=== PATIENT | male | born 1955 | race Caucasian/White ===

== ENCOUNTER 2020-07-04 20:50 | Emergency (ER) | payer SELFPAY ==
[~2020-07-04] VITALS: Ht 167.6 cm; Wt 68.0 kg
[2020-07-04 21:09] VITALS: BP_SYST 129
--- NOTE | 2020-07-04 21:15 | NUR ---
PT BROUGHT IN BY DAUGHTER, PT STATES THAT APPROX 8PM TONIGHT HE MIXED VINEAGAR AND CLOROX TO CLEAN A FLOOR. PT STATES AFTER MICING, HE INHALED A LARGE BREATH OF THE FUMES AND HAD A COUGHING FIT. PT STATES SINCE THEN HE HAS HAD INCREASED SHORTNESS OF BREATH AND DISCOMFORT OR "TIGHTNESS" ON INSPIRATION. PT DENIES SYNCOPE, DIZZINESS, RINGING IN EARS
--- NOTE | 2020-07-04 21:15 | NUR ---
PT PLACED IN ED WAITING TENT. PT VSS, ACCOMPANIED BY DAUGHTER
--- NOTE | 2020-07-04 21:37 | NUR ---
SPOKE TO FRANCISCO AT [facility], REFERENCE [id number]. CONFERENCED WITH MEDICAL POISON CONTROL LINE.
--- NOTE | 2020-07-04 21:43 | NUR ---
ON LINE WITH LEVI AT POISON CONTROL. STATES SHE WILL PROVIDE TOXICOLOGY CONSULT WITH POISON CONTROL SUPERVISOR REINFORCED STEEL PLACING. RECCOMENDATION IS BICARB NEB 3ML, OR ALBUTEROL TREATMENT. STATE TO OBSERVE PATIENT FOR 1-2 HOUR AND . CASE [id number]
[2020-07-04] MEDS ORDERED: IPRATROPIUM/ALBUTEROL SULFATE 3 ML AMPUL.NEB (DUONEB) INH ONE (22:00)
[2020-07-04 22:03] LABS: BASOPHILS # (AUTO) 0.1 K/uL (0.0-0.2); BASOPHILS % (AUTO) 0.7 % (0.0-2.0); EOSINOPHILS # (AUTO) 0.1 K/uL (0.0-0.4); EOSINOPHILS % (AUTO) 1.5 % (0.0-4.0); HEMATOCRIT 51.5 % (36-54); HEMOGLOBIN 17.6 g/dL (14.0-18.0); LYMPHOCYTES # (AUTO) 1.7 K/uL (1.0-5.5); LYMPHOCYTES % (AUTO) 21.4 % (20.5-51.5); MEAN CORPUSCULAR HEMOGLOBIN 31 pg (27-31); MEAN CORPUSCULAR HGB CONC 34 % (32-36); MEAN CORPUSCULAR VOLUME 91 fL (79.0-98.0); MONOCYTES # (AUTO) 0.5 K/uL (0.0-1.0); MONOCYTES % (AUTO) 6.5 % (1.7-9.3); NEUTROPHILS # (AUTO) 5.7 K/uL (1.8-7.7); NEUTROPHILS % (AUTO) 69.9 % (40.0-70.0); PLATELET COUNT (AUTO) 273 K/uL (130-430); RED BLOOD CELL COUNT(AUTO) 5.66 MIL/uL (4.2-6.2); RED CELL DISTRIBUTION WIDTH 13.1 % (9.0-15.0); WHITE BLOOD COUNT (AUTO) 8.1 K/uL (4.8-10.8)
[2020-07-04 22:22] LABS: CREATININE 1.26 mg/dL (0.55-1.30); POTASSIUM 5.4 mmol/L (3.5-5.1)
[2020-07-04 22:33] LABS: ALBUMIN 4.1 g/dL (3.4-4.8); TOTAL BILIRUBIN 0.4 mg/dL (0.0-1.0)
--- NOTE | 2020-07-04 22:39 | NUR ---
PT STATES THAT HIS SYMPTOMS ARE MUCH IMPROVED. PT STATES HE WOULD LIKE TO GO HOME NOW HE FEELS MUCH BETTER. PT ADVISED HE CAN RETURN TO ED AT ANY TIME IF SYMPTOMS RE-APPEAR OR WORSEN. NOTIFIED
[2020-07-05 01:11] VITALS: BP_SYST 122
--- NOTE | 2020-07-05 01:11 | NUR ---
Patient given written and verbal discharge instructions and verbalizes understanding. ER MD discussed with patient the results and treatment provided. Patient in stable condition. ID arm band removed. NO IV. NO RX given. Patient educated on pain management and to follow up with PMD. Pain Scale 0/10. Opportunity for questions provided and answered. Medication side effect fact sheet provided.
== END 2020-07-05 01:11 | disposition home or self-care (01) ==
LOC: SED 20:50
DX: T54.91XA Toxic effect of unspecified corrosive substance, accidental (unintentional), initial encounter (principal); E11.9 Type 2 diabetes mellitus without complications; Z20.828 Contact with and (suspected) exposure to other viral communicable diseases; Y92.89 Other specified places as the place of occurrence of the external cause
CPT/HCPCS: 36415; 71045; 80053; 84132-TC; 84484; 85025; 94640; 99284

== ENCOUNTER 2022-11-09 00:28 | Emergency (ER) | payer OTHER ==
[~2022-11-09] VITALS: Ht 165.1 cm; Wt 77.1 kg
[2022-11-09 00:49] VITALS: BP_SYST 120
--- NOTE | 2022-11-09 00:55 | NUR ---
Patient triaged and placed in waiting room. VSS and patient appears in no acute distress at this time. Accompanied by family, awaiting available bed, and MD notified of need for MSE.
--- NOTE | 2022-11-09 00:56 | NUR ---
Provided with urine cup for urine sample collection
[2022-11-09 02:08] LABS: CALCIUM 8.7 mg/dL (8.4-11.0); CREATININE 1.17 mg/dL (0.55-1.30)
[2022-11-09 02:12] LABS: ALBUMIN 3.3 g/dL (3.4-4.8); TOTAL BILIRUBIN 0.3 mg/dL (0.0-1.0)
[2022-11-09 02:14] LABS: BASOPHILS % (AUTO) 0.4 % (0.0-2.0); EOSINOPHILS # (AUTO) 0.1 K/uL (0.0-0.4); EOSINOPHILS % (AUTO) 1.3 % (0.0-4.0); HEMATOCRIT 45.6 % (36-54); HEMOGLOBIN 15.2 g/dL (14.0-18.0); LYMPHOCYTES # (AUTO) 2.3 K/uL (1.0-5.5); LYMPHOCYTES % (AUTO) 28.2 % (20.5-51.5); MEAN CORPUSCULAR HEMOGLOBIN 31 pg (27-31); MEAN CORPUSCULAR HGB CONC 33 % (32-36); MEAN CORPUSCULAR VOLUME 92 fL (79.0-98.0); MONOCYTES # (AUTO) 0.6 K/uL (0.0-1.0); MONOCYTES % (AUTO) 7.7 % (1.7-9.3); NEUTROPHILS # (AUTO) 5.1 K/uL (1.8-7.7); NEUTROPHILS % (AUTO) 62.4 % (40.0-70.0); PLATELET COUNT (AUTO) 265 K/uL (130-430); RED BLOOD CELL COUNT(AUTO) 4.95 MIL/uL (4.2-6.2); RED CELL DISTRIBUTION WIDTH 13.2 % (9.0-15.0); WHITE BLOOD COUNT (AUTO) 8.1 K/uL (4.8-10.8)
--- NOTE | 2022-11-09 03:10 | NUR ---
Patient placed in ER BED 5 for evaluation. Bed in lowest position with siderails up. Report given to Rashid BOYD for continuity of care. Instructed to notify ED staff for any changes in condition or worsening of symptoms. Patient verbalized understanding.
--- NOTE | 2022-11-09 03:16 | NUR ---
Dr. Rosemary Wall at bedside examining the patient.
--- NOTE | 2022-11-09 03:20 | NUR ---
Patient resting in bed, A/Ox4, chest rise and fall symmetrical, no s/s of distress, on monitor.
[2022-11-09] MEDS ORDERED: NACL 0.9% 1,000 ML IV ONE (03:30)
[2022-11-09] MEDS ORDERED: METOCLOPRAMIDE HCL 10 MG/2 ML VIAL IVP ONE (03:30)
[2022-11-09] MEDS ORDERED: PANTOPRAZOLE SODIUM 40 MG/VIAL (PROTONIX) IVP ONE (03:30)
--- NOTE | 2022-11-09 04:05 | NUR ---
Patient taken to CT.
[2022-11-09 04:14] LABS: BILIRUBIN,URINE NEGATIVE (NEGATIVE); BLOOD, URINE NEGATIVE (NEGATIVE); CLARITY/URINE CLEAR (CLEAR); COLOR,URINE YELLOW (YELLOW); GLUCOSE,URINE 3+ (NEGATIVE); KETONES,URINE NEGATIVE (NEGATIVE); LEUKOCYTE ESTERASE ,URINE NEGATIVE (NEGATIVE); NITRITE, URINE NEGATIVE (NEGATIVE); PROTEIN URINE NEGATIVE (NEGATIVE); UROBILINOGEN,URINE 0.2 (0.2-1.0)
--- NOTE | 2022-11-09 04:21 | NUR ---
Patient back from CT.
--- NOTE | 2022-11-09 04:25 | NUR ---
Patient resting in bed, A/Ox4, chest rise and fall symmetrical, no s/s of distress, on monitor.
[2022-11-09] MEDS ORDERED: NAPR-686 PO (06:12)
[2022-11-09] MEDS ORDERED: POLY17PO4 PO (06:12)
--- NOTE | 2022-11-09 06:15 | NUR ---
Patient resting in bed, A/Ox4, chest rise and fall symmetrical, no c/o pain or s/s of distress, on monitor.
--- NOTE | 2022-11-09 06:35 | NUR ---
Dr. Richmond verbalized order for accucheck. Accucheck completed, result 205. Dr. Richmond aware, no new orders.
[2022-11-09 06:39] VITALS: BP_SYST 118
--- NOTE | 2022-11-09 06:40 | NUR ---
Patient given written and verbal discharge instructions and verbalizes understanding. ER MD discussed with patient the results and treatment provided. Patient in stable condition. ID arm band removed. IV catheter removed intact and dressing applied, no active bleeding. Rx given to patient. Patient educated on pain management and to follow up with PMD. Pain Scale 0/10. Opportunity for questions provided and answered. Medication side effect fact sheet provided.
== END 2022-11-09 06:40 | disposition home or self-care (01) ==
LOC: SED 00:28
DX: K59.00 Constipation, unspecified (principal); R10.12 Left upper quadrant pain; E11.649 Type 2 diabetes mellitus with hypoglycemia without coma; E16.2 Hypoglycemia, unspecified; Z79.899 Other long term (current) drug therapy
CPT/HCPCS: 99285; 74177; 96374; 96361; 96375; 80053; 82962; 83690; 85025; 36415; 76376; 81003; J2765; C9113; Q9967; J7030